=== PATIENT | female | born 1980 | race Two or more races ===

== ENCOUNTER 2016-07-15 12:50 | Emergency (ER) | payer MEDICAID ==
[~2016-07-15] VITALS: Ht 165.1 cm; Wt 106.6 kg
[~2016-07-15 12:50] MED LIST: ALPR1TAB2 PO; DULO60CA PO; GABA300C8 PO
[2016-07-15] MEDS ORDERED: SODIUM CHLORIDE 0.9% 1,000 ML IVB ONE (14:09)
[2016-07-15] MEDS ORDERED: PANTOPRAZOLE SODIUM 40 MG/10 ML VIAL IV STA (14:09)
[2016-07-15 14:14] LABS: Basophils # (auto) 0 uL; Basophils % (auto) 0.2 % (0.0-2.0); Eosinophils # (auto) 0.1 uL; Hematocrit 44.2 % (36.0-46.0); Hemoglobin 14.5 g/dL (12.2-16.2); Lymphocytes # (auto) 0.8 uL; Lymphocytes % (auto) 10.9 % (10.0-50.0); Mean Corpuscular Hemoglobin 30.3 pg (28.0-32.0); Mean Corpuscular Hgb Conc. 32.8 g/dL (32.0-36.0); Mean Corpuscular Volume 92.6 fL (80.0-100.0); Mean Platelet Volume 8.3 fL (7.4-10.4); Monocytes # (auto) 0.6 uL; Monocytes % (auto) 7.4 % (0.0-12.0); Neutrophils # (auto) 6.1 uL; Neutrophils % (auto) 80.5 % (37.0-80.0); Platelet Count (auto) 295 10^3/uL (140-450); Red Cell Distribution Width 14.5 % (11.6-16.0); White Blood Cell 7.5 10^3/uL (4.4-10.8)
[2016-07-15] MEDS ORDERED: MORPHINE SULFATE 4 MG/ML SYRG IV ONE (14:15)
[2016-07-15] MEDS ORDERED: ONDANSETRON HCL 4 MG/2 ML VIAL IV ONE (14:15)
[2016-07-15 14:48] LABS: Albumin 3.3 g/dL (3.4-5.0); BUN/Creatinine Ratio 10.8; Bilirubin, Total 0.4 mg/dL (0.2-1.0); Calcium 8.6 mg/dL (8.5-10.1); Potassium 4.6 mmol/L (3.5-5.1); Total Protein 7.8 g/dL (6.4-8.2)
[2016-07-15 14:55] LABS: Urine Bilirubin Negative (Negative); Urine Blood Negative /uL (Negative); Urine Color Yellow (Yellow); Urine Glucose Normal (Normal); Urine Ketone TRACE (Negative); Urine Mucus MODERATE (None Seen); Urine Nitrite Negative (Negative); Urine RBC 6 /hpf (0 - 4); Urine Squamous Epithelial Cell MANY /hpf (<5); Urine pH 5.5 (5.0-8.0)
[2016-07-15 16:30] VITALS: BP 119/70
== END 2016-07-15 15:42 | disposition home or self-care (01) ==
LOC: EDUNIT# 12:50 → EDBD 12:50 → ER 12:56
DX: N39.0 Urinary tract infection, site not specified (principal); Z88.6 Allergy status to analgesic agent; R11.2 Nausea with vomiting, unspecified; R19.7 Diarrhea, unspecified; E78.5 Hyperlipidemia, unspecified; I10 Essential (primary) hypertension; Z87.440 Personal history of urinary (tract) infections; Z90.49 Acquired absence of other specified parts of digestive tract
CPT/HCPCS: 36415; 80053; 81001; 83690; 85025; 93005; 94761; 96361; 96374; 96375; 99285; C9113; J2270; J2405; J7030

== ENCOUNTER 2016-09-23 12:55 | Emergency (ER) | payer MEDICAID ==
[~2016-09-23] VITALS: Ht 165.1 cm; Wt 104.3 kg
[~2016-09-23 12:55] MED LIST changes: +GABA-497 PO; -GABA300C8 PO
[2016-09-23 13:18] VITALS: BP 120/78
== END 2016-09-23 19:18 | disposition left against medical advice (07) ==
LOC: ER 12:55
DX: M54.9 Dorsalgia, unspecified (principal); Z53.21 Procedure and treatment not carried out due to patient leaving prior to being seen by health care provider; V49.3XXA Car occupant (driver) (passenger) injured in unspecified nontraffic accident, initial encounter; Y93.89 Activity, other specified; Y99.8 Other external cause status; Y92.89 Other specified places as the place of occurrence of the external cause

== ENCOUNTER 2020-07-16 02:32 | Emergency (ER) | payer MEDICAID ==
[~2020-07-16] VITALS: Ht 165.1 cm; Wt 117.9 kg
[~2020-07-16 02:32] MED LIST changes: -GABA-497 PO; +GABA300C10 PO
[2020-07-16] MEDS ORDERED: HYDROcodone-ACET 5/325MG TAB PO ONE (04:45)
[2020-07-16 06:01] VITALS: BP 137/65
== END 2020-07-16 07:20 | disposition home or self-care (01) ==
LOC: EDBD 02:32 → ER 02:37
DX: M54.2 Cervicalgia (principal); I10 Essential (primary) hypertension; E78.5 Hyperlipidemia, unspecified; Z90.49 Acquired absence of other specified parts of digestive tract; Z79.899 Other long term (current) drug therapy; Z88.8 Allergy status to other drugs, medicaments and biological substances; V49.9XXA Car occupant (driver) (passenger) injured in unspecified traffic accident, initial encounter; Y93.89 Activity, other specified; Y92.89 Other specified places as the place of occurrence of the external cause; Y99.8 Other external cause status
CPT/HCPCS: 70450; 71045; 72125; 72170; 73030

== ENCOUNTER 2024-01-01 18:47 | Emergency (ER) | payer MEDICAID ==
[~2024-01-01] VITALS: Ht 165.1 cm; Wt 99.0 kg
[~2024-01-01 18:47] MED LIST changes: -DULO60CA PO; +DULO60CA41 PO; +GABA-1250 PO; -GABA300C10 PO
[2024-01-02 00:14] VITALS: RESP 17
== END 2024-01-02 00:17 | disposition home or self-care (01) ==
LOC: ER 18:47 → EDBD 18:47 → ER 01-02 00:16
DX: F10.129 Alcohol abuse with intoxication, unspecified (principal); E78.5 Hyperlipidemia, unspecified; F41.9 Anxiety disorder, unspecified; I10 Essential (primary) hypertension; Z79.899 Other long term (current) drug therapy; Z87.440 Personal history of urinary (tract) infections; Z88.5 Allergy status to narcotic agent; Z90.49 Acquired absence of other specified parts of digestive tract; Y90.8 Blood alcohol level of 240 mg/100 ml or more